=== PATIENT | female | born 1995 | race Caucasian/White ===

== ENCOUNTER → 2020-03-09 20:59 | Outpatient (CLI) | payer OTHER, SELFPAY ==
[2020-03-09 16:45] VITALS: BMI 35.6
[2020-03-09 21:14] LABS: Absolute Lymphocyte Count 1.84 X10^3/uL (0.83-4.51); Absolute Neutrophil Count 7.7 X10^3/uL (2.0-7.7); Basophil# 0.04 X10^3/uL; Basophil% 0.4 % (0-1); Eosinophil# 0.15 X10^3/uL; Eosinophils% 1.4 % (0-5); Hemoglobin 14.1 g/dL (12.0-15.0); Lymphocyte # 1.84 X10^3/ul (4.0); Lymphocyte % 17.5 % (19-41); Mean Corp Hgb Conc 33.6 g/dL (32-36); Mean Corpuscular Hgb 28.1 pg (27.0-32.0); Mean Corpuscular Volume 83.8 fL (81-99); Mean Platelet Vol. 10.9 fl (6.2-12.0); Monocyte# 0.76 X10^3/uL; Monocyte% 7.2 % (0-10); NRBC Flagged by Analyzer 0 % (0-5); Neutrophil # 7.69 X10^3/uL (2.7-7.7); Neutrophil % 73.2 % (47-70); Platelet Count 261 K/mm3 (150-450); RBC Distribution Width CV 12.4 % (11.6-14.6); RBC Distribution Width SD 37.2 fl (35.1-43.9); Red Blood Count 5.01 M/mm3 (4.2-5.4); White Blood Count 10.5 K/mm3 (4.4-11.0)
[2020-03-09 21:31] LABS: ALB/GLOB Ratio 1.1 RATIO (0.9-2.4); AST(SGOT) 24 U/L (15-37); Alanine Aminotransfer ALT/SGPT 32 U/L (13-56); Alkaline Phosphatase 129 U/L (45-117); Anion Gap 5 (5-15); BUN 14 mg/dL (7-18); BUN/Creat Ratio 17.3 RATIO (10-20); Calcium,Total 8.9 mg/dL (8.5-10.1); Chloride 107 mmol/L (98-107); Cholesterol 138 mg/dL (200); Creatinine, Serum 0.81 mg/dL (0.55-1.02); EST Glomerular Filtration Rate 93 mL/min (>60); Est Glom Filt Rate - Afr Amer 112 mL/min (>60); Follicle Stimulating Hormone 1.4 mIU/mL; Globulin 3.5 g/dL (2.2-4.2); Glucose 89 mg/dL (74-106); High Density Lipoprotein 48 mg/dL; Luteinizing Hormone 2.5 mIU/mL; Magnesium 2.3 mg/dL (1.6-2.6); Potassium 3.9 mmol/L (3.5-5.1); Protein, Total 7.5 g/dL (6.4-8.2); Sodium Level 139 mmol/L (136-145); Triglycerides 56 mg/dL; Very Low Density Lipoprotein 11 mg/dL (5-40)
== END ==
PROVIDERS: Referring Provider Nurse Practitioner; Visit Provider Nurse Practitioner
DX: I10 Essential (primary) hypertension (principal); R00.0 Tachycardia, unspecified; N91.2 Amenorrhea, unspecified
CPT/HCPCS: 80053; 80061; 83001; 83002; 83735; 85025

== ENCOUNTER → 2020-03-11 22:10 | Outpatient (CLI) | payer OTHER, SELFPAY ==
[2020-03-11 17:35] VITALS: BMI 35.6
[2020-03-11 22:40] LABS: Prolactin 18.3 ng/mL; Thyroid Stim Hormone (TSH) 1.65 uIU/mL (0.358-3.74)
== END ==
LOC: OLS.AHF 22:11 → LABSPEC 03-12 08:33
PROVIDERS: Referring Provider Nurse Practitioner; Visit Provider Nurse Practitioner
DX: I10 Essential (primary) hypertension (principal); N91.2 Amenorrhea, unspecified; R00.0 Tachycardia, unspecified
CPT/HCPCS: 82533; 84146; 84439; 84443